=== PATIENT | female | born 1990 | race Caucasian/White ===

== ENCOUNTER 2018-09-23 14:45 | Observation (INO) | payer BC, MEDICAID ==
--- NOTE | 2018-09-23 14:56 | EDM.PDOC ---
ED HPI GENERAL MEDICAL PROBLEM - General Chief Complaint: Cardiovascular Problem Stated Complaint: Anxiety Time Seen by Provider: 09/23/18 14:56 Source of Information: Reports: Patient History Limitations: Reports: No Limitations - History of Present Illness INITIAL COMMENTS - FREE TEXT/NARRATIVE: Presents to emergency department this afternoon with what she claims a panic attack. 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 She has been borderline anemic in the past and has been experiencing 4 weeks of continuous vaginal bleeding minimal to moderate with no cessation. History of regular manses lifelong with roughly 3 months ago a missed period followed by this 1 month persistent vaginal bleed. She denied the risk of . Childhood asthma-type diagnosis and she had wheezing at times with no other medical problems acknowledged other than roughly 2 years ago endometriosis with transvaginal as well as abdominal pelvic ultrasound. J she acknowledges to me that she has been in bed for several days due to illness but denies claudication or leg cramps. Mild edema to the legs. Onset: Today Onset Date: 09/23/18 Duration: Hour(s):, Getting Worse Location: Reports: Head, Chest Quality: Reports: Ache, Burning Severity: Severe Improves with: Reports: None Worsens with: Reports: None Context: Reports: Activity Associated Symptoms: Reports: Weakness - Related Data Allergies Allergy/AdvReac Type Severity Reaction Status Date / Time No Known Drug Allergies Allergy Other Verified 09/23/18 15:06 Home Meds: Home Meds Ibuprofen 400 mg PO Q6HR PRN 09/23/18 [History] Past Medical History HEENT History: Reports: Other (See Below) (Foreign body in nasal passage at age 5 with infectious property) Cardiovascular History: Reports: None Respiratory History: Reports: Asthma (Childhood in nature with occasional wheeze but never O facial diagnosis) Gastrointestinal History: Reports: None Genitourinary History: Reports: None TORCH HEATER History: Reports: Dysfunctional Uterine Bleeding, Endometriosis LMP (Approximate): Menstruating (For the past 4 weeks) Musculoskeletal History: Reports: None Neurological History: Reports: None Psychiatric History: Reports: Anxiety Endocrine/Metabolic History: Reports: None Hematologic History: Reports: Anemia (Borderline for several years) Immunologic History: Reports: None Oncologic (Cancer) History: Reports: None Dermatologic History: Reports: None - Infectious Disease History Infectious Disease History: Reports: Chicken Pox, Other (See Below) (Fully immunized with typical childhood illnesses) - Past Surgical History HEENT Surgical History: Reports: Other (See Below) (Removal of sponge foreign body in the posterior nasal passage was infected) Social & Family History - Family History Family Medical History: Noncontributory HEENT: Reports: None Respiratory: Reports: None - Tobacco Use Smoking Status *Q: Never Smoker - Tobacco Core Measures Tobacco Use/Smoking Within Last 30 Days: No Smoking Frequency Within Last 30 Days: Reports: None Smokeless Tobacco Use in Last 30 Days: No Smokeless Tobacco Use History: None - Caffeine Use Caffeine Use: Reports: Coffee - Alcohol Use Alcohol Use History: No - Recreational Drug Use Recreational Drug Use: No Drug Use in Last 12 Months: No - Sexual History Sexual History: Reports: Vaginal [place] - Living Situation & Occupation Living situation: Reports: Single, Alone Occupation: Employed ED ROS GENERAL - Review of Systems Review Of Systems: See Below Constitutional: Reports: Weakness HEENT: Reports: No Symptoms Respiratory: Reports: Shortness of Breath Cardiovascular: Reports: Lightheadedness Endocrine: Reports: No Symptoms GI/Abdominal: Denies: Hematemesis, Hematochezia, Melena : Reports: Discharge, Irregular Menses Musculoskeletal: Reports: No Symptoms Skin: Reports: No Symptoms Neurological: Reports: No Symptoms Psychiatric: Reports: Anxiety Hematologic/Lymphatic: Reports: Anemia Immunologic: Reports: No Symptoms ED EXAM, GENERAL - Physical Exam Exam: See Below Exam Limited By: No Limitations General Appearance: Alert, WD/WN, No Apparent Distress Ears: Normal External Exam, Normal Canal, Hearing Grossly Normal, Normal TMs Nose: Normal Inspection, Normal Mucosa, No Blood Throat/Mouth: Normal Inspection, Normal Lips, Normal Teeth, Normal Oropharynx, Normal Voice, No Airway Compromise Head: Atraumatic, Normocephalic Neck: Normal Inspection, Supple, Non-Tender, Full Range of Motion Respiratory/Chest: No Respiratory Distress, Lungs Clear, Normal Breath Sounds, No Accessory Muscle Use, Chest Non-Tender, Other (Occasional squeak was noted audibly as well as auscultated in the base in 1 of 6 inspiration expiration cycles) Cardiovascular: Normal Peripheral Pulses, No Murmur GI/Abdominal: Normal Bowel Sounds, Soft, Non-Tender (Female) Exam: Deferred Rectal (Female) Exam: Deferred Extremities: Normal Inspection, Normal Range of Motion, Non-Tender, Pedal Edema (+2 bilateral). No: Susi's Sign (.) Neurological: Alert, Oriented, CN II-XII Intact, Normal Cognition, Normal Gait, Normal Reflexes, No Motor/Sensory Deficits Psychiatric: Anxious Skin Exam: Warm, Dry, Intact, No Rash, Pallor Lymphatic: No Adenopathy Course - Vital Signs Last Recorded V/S: Last Vital Signs Temp 35.5 C 09/23/18 14:50 Pulse 137 H 09/23/18 14:50 Resp 30 H 09/23/18 14:50 BP 130/70 09/23/18 14:50 Pulse Ox 100 09/23/18 14:50 - Orders/Labs/Meds Orders: Active Orders 24 hr Category Date Time Status Chest w Cont [CT] Stat Exams 09/23/18 16:01 Ordered BLOOD SMEARS TO PATHOLOGIST [REF] Stat Lab 09/23/18 16:03 Ordered IRON PNL (FE, TIBC, BRAIN, %SAT) [REF] Stat Lab 09/23/18 16:02 Ordered RETICULOCYTE COUNT [REF] Stat Lab 09/23/18 16:03 Ordered TYPE AND SCREEN [BBK] Stat Lab 09/23/18 16:04 Ordered Transfuse RBC [Transfuse Red Blood Cells] [COMM] Urgent Oth 09/23/18 16:05 Ordered Labs: Laboratory Tests 09/23/18 09/23/18 09/23/18 Range/Units 15:10 15:10 15:10 WBC 8.37 (5.00-10.00) 10^3/uL RBC 2.37 L (3.80-5.50) 10^6/uL Hgb 5.3 L* (12.0-16.0) g/dL Hct 18.4 L* (37.0-47.0) % MCV 77.6 L (82.0-92.0) fL MCH 22.4 L (27.0-31.0) pg MCHC 28.8 L (32.0-36.0) g/dL RDW 22.3 H (11.5-14.5) % Plt Count 316 (150-400) 10^3/uL MPV 12.0 H (7.4-10.4) fL Immature Gran % (Auto) 0.2 (0.0-5.0) % Neut % (Auto) 72.2 H (50.0-70.0) % Lymph % (Auto) 18.2 L (20.0-40.0) % [place] % (Auto) 8.1 H (2.0-8.0) % Eos % (Auto) 0.5 L (1.0-3.0) % Baso % (Auto) 0.8 (0.0-1.0) % Immature Gran # (Auto) 0.02 (0.00-0.50) 10^3/uL Neut # (Auto) 6.04 (2.50-7.00) 10^3/uL Lymph # (Auto) 1.52 (1.00-4.00) 10^3/uL [place] # (Auto) 0.68 (0.10-0.80) 10^3/uL Eos # (Auto) 0.04 L (0.10-0.30) 10^3/uL Baso # (Auto) 0.07 (0.00-0.10) 10^3/uL D-Dimer, Quantitative 507 H (<400) ng/mL Sodium 140 (136-145) mmol/L Potassium 3.2 L (3.3-5.3) mmol/L Chloride 104 (98-115) mmol/L Carbon Dioxide 16.2 L (21.0-32.0) mmol/L Anion Gap 23.0 H (5-15) mmol/L BUN 11 (6-25) mg/dL Creatinine 1.02 (0.51-1.17) mg/dL Est Cr Clr Drug Dosing 75.21 mL/min Estimated GFR (MDRD) > 60 mL/min Glucose 115 H (75 - 99) mg/dL Calcium 9.2 (8.7-10.3) mg/dL Total Bilirubin 0.3 (0.2-1.0) mg/dL AST 16 (15-37) U/L ALT 21 (12-78) U/L Alkaline Phosphatase 41 L (46-116) IU/L Total Protein 7.2 (6.4-8.2) g/dL Albumin 3.69 (3.00-4.80) g/dL HCG, Qual Negative (NEGATIVE) Departure - Departure Time of Disposition: 16:49 Disposition: Refer to Observation Condition: Good Clinical Impression: Anxiety, Anemia, Elevated d-dimer - Discharge Information *PRESCRIPTION DRUG MONITORING PROGRAM REVIEWED*: Not Applicable *COPY OF PRESCRIPTION DRUG MONITORING REPORT IN PATIENT JOSE ROBERTO: Not Applicable Referrals: Bettye Barros PA-C [Primary Care Provider] - Forms: ED Department Discharge ED Communication - ED Communication Date/Time Date: 09/23/18 Time Called: 15:50 - Discussed Case With (1) Discussed Case With (1): Admitting Provider Person/s Notified (1): Bettye Barros (Discussed stability despite anemia 5.3. Hesitant to transfuse if further studies were being performed. Discussion for admission further lab work including PE study due to elevated d-dimer and 2 unit transfusion) - Problem List & Annotations (1) Shortness of breath SNOMED Code(s): 650488372 Code(s): R06.02 - SHORTNESS OF BREATH Status: Acute Priority: High Current Visit: Yes (2) Anxiety SNOMED Code(s): 44154266 Code(s): F41.9 - ANXIETY DISORDER, UNSPECIFIED Status: Chronic Priority: Medium Current Visit: Yes (3) Anemia SNOMED Code(s): 051841125 Code(s): D64.9 - ANEMIA, UNSPECIFIED Status: Chronic Priority: High Current Visit: Yes Qualifiers: Anemia type: unspecified type Qualified Code(s): D64.9 - Anemia, unspecified (4) Elevated d-dimer SNOMED Code(s): 521787147 Code(s): R79.89 - OTHER SPECIFIED ABNORMAL FINDINGS OF BLOOD CHEMISTRY Status: Acute Priority: High Current Visit: Yes (5) Hypokalemia SNOMED Code(s): 08146088 Code(s): E87.6 - HYPOKALEMIA Status: Acute Priority: High Current Visit : Yes (6) Abnormal uterine and vaginal bleeding, unspecified SNOMED Code(s): 602327684, 331059726, 805277316 Code(s): N93.9 - ABNORMAL UTERINE AND VAGINAL BLEEDING, UNSPECIFIED Status : Acute Priority: High Current Visit: Yes Onset Date: ~08/17/18 - My Orders Last 24 Hours: My Active Orders 09/23/18 16:01 Chest w Cont [CT] Stat 09/23/18 16:02 IRON PNL (FE, TIBC, BRAIN, %SAT) [REF] Stat 09/23/18 16:03 BLOOD SMEARS TO PATHOLOGIST [REF] Stat RETICULOCYTE COUNT [REF] Stat 09/23/18 16:04 TYPE AND SCREEN [BBK] Stat 09/23/18 16:05 Transfuse RBC [Transfuse Red Blood Cells] [COMM] Urgent - Assessment/Plan Admission H&P: Please use this note as an admission H&P Last 24 Hours: My Active Orders 09/23/18 16:01 Chest w Cont [CT] Stat 09/23/18 16:02 IRON PNL (FE, TIBC, BRAIN, %SAT) [REF] Stat 09/23/18 16:03 BLOOD SMEARS TO PATHOLOGIST [REF] Stat RETICULOCYTE COUNT [REF] Stat 09/23/18 16:04 TYPE AND SCREEN [BBK] Stat 09/23/18 16:05 Transfuse RBC [Transfuse Red Blood Cells] [COMM] Urgent Plan: Will obtain PE protocol CT with contrast of the chest. Will be referred for observation status type and crossed with match of 2 units to be infused. Pelvic ultrasound with transvaginal will be obtained tomorrow
[2018-09-23 15:43] LABS: CHLORIDE,CL 104 mmol/L (98-115); SODIUM,NA 140 mmol/L (136-145)
[2018-09-23] MEDS ORDERED: Iopamidol 755 Mg/ML 75 ML Bottle IVPUSH ONE (16:21)
[2018-09-23] MEDS ORDERED: Sodium Chloride 0.9% 100 ML IV SCH (16:30)
--- NOTE | 2018-09-23 17:00 | CT ---
[id number] CT/CT Chest W IV EXAM: CT ANGIOGRAM CHEST. INDICATION: Positive d-dimer. COMPARISON: None. DISCUSSION: The pulmonary arteries are normal in caliber with no filling defects identified to suggest pulmonary emboli. Mildly dilated gas-filled esophagus to the level of the gastroesophageal junction. Differential considerations would include recent belching, air swallowing or distal esophageal stenosis. No mass is identified. An esophagram could provide further evaluation if there are symptoms related to swallowing. The lungs are clear. No pleural or pericardial effusion. Normal heart size. No mediastinal, hilar or axillary adenopathy. The upper abdomen and osseous structures are unremarkable. IMPRESSION: 1. Negative for pulmonary embolism. 2. Gas-filled mildly dilated esophagus, see discussion. Joel Bunch MD 09/23/18 6509 Thank you for allowing us to participate in the care of your patient.
[2018-09-23] MEDS ORDERED: Acetaminophen 325 MG Tab PO PRN (22:47)
--- NOTE | 2018-09-24 08:55 | PCM.DCSUM1 ---
Discharge Summary - Hospital Course Free Text/Narrative:: Damaris is being discharged from an observation stay overnight (09/23 - 09/24) due to anemia secondary to dysfunction uterine bleeding. She has a 4 weeks hx of mild to moderate vaginal bleeding daily. She states over the weekend she went through 4 "maxi size pads just overnight". She had no cramping. She had passage of clots but nothing large. She does not take blood thinners, she had not been using NSAID's. She has been borderline anemic in the past per her report. No recent labs have been drawn to know where she has been in the past year. 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 In the ER she was noted to be in a sinus tachycardia. Basic labs were obtained which showed a hemoglobin of 5.3, microcytic with an MCV of 77.6. Iron studies were obtained ( results pending), test was negative and she was admitted for blood transfusion. She received 2 units of PRBC's and her hemoglobin this morning was 7.8. Her tachycardia had resolved. She had a minimally elevated d-dimer of 507 and given the fact she had been spending a lot of time in bed the past 3 days due to not feeling well, a CT PE protocol was obtained, which was negative for PE. No LE symptoms. She is feeling much better this morning, no SOB. She underwent a pelvic ultrasound this morning, results are pending. She will be discharged home today. Recommend iron supplementation with ferrous sulfate, 1 tablet by mouth every other day. She states she is taking iron daily at home. Recommend follow-up with PCP within 1 week to get referral to [facility] for dysfunctional uterine bleeding and to repeat CBC. Pending tests at discharge: Iron studies Pelvic U/S report Discharge Diagnosis: Anemia secondary to acute blood loss. Dysfunctional uterine bleeding. Diagnosis: Stroke: No Modified Orange Scale: No Symptoms at All Modified Orange Scale Score: 0 - Discharge Data Discharge Date: 09/24/18 Discharge Disposition: Home, Self-Care 01 Condition: Good - Discharge Diagnosis/Problem(s) (1) Abnormal uterine and vaginal bleeding, unspecified SNOMED Code(s): 474606365, 409873501, 465476256 ICD Code: N93.9 - ABNORMAL UTERINE AND VAGINAL BLEEDING, UNSPECIFIED Status : Acute Priority: High Current Visit: Yes Onset Date: ~08/17/18 (2) Anemia SNOMED Code(s): 511040987 ICD Code: D64.9 - ANEMIA, UNSPECIFIED Status: Chronic Priority: High Current Visit: Yes Qualifiers: Anemia type: iron deficiency Iron deficiency anemia type: chronic blood loss Qualified Code(s): D50.0 - Iron deficiency anemia secondary to blood loss (chronic) - Patient Instructions Diet: Regular Diet as Tolerated Activity: As Tolerated - Discharge Plan *PRESCRIPTION DRUG MONITORING PROGRAM REVIEWED*: Not Applicable *COPY OF PRESCRIPTION DRUG MONITORING REPORT IN PATIENT JOSE ROBERTO: Not Applicable Home Medications: Home Meds Ibuprofen 400 mg PO Q6HR PRN 09/23/18 [History] Forms: ED Department Discharge Referrals: Bettye Barros PA-C [Primary Care Provider] - - Discharge Summary/Plan Comment DC Time >30 min.: No - General Info Date of Service: 09/24/18 Admission Dx/Problem (Free Text: Acute blood loss anemia. - Patient Data Vitals - Most Recent: Last Vital Signs Temp 98.6 F 09/24/18 06:14 Pulse 84 09/24/18 06:14 Resp 18 09/24/18 06:14 BP 98/61 09/24/18 06:14 Pulse Ox 99 09/24/18 06:14 Weight - Most Recent: 147 lb I&O - Last 24 hours: Intake & Output 09/23/18 09/24/18 09/24/18 22:59 06:59 14:59 Intake Total 350 325 Balance 350 325 Lab Results - Last 24 hrs: Laboratory Results - last 24 hr 09/23/18 09/23/18 09/23/18 Range/Units 15:10 15:10 15:10 WBC 8.37 (5.00-10.00) 10^3/uL RBC 2.37 L (3.80-5.50) 10^6/uL Hgb 5.3 L* (12.0-16.0) g/dL Hct 18.4 L* (37.0-47.0) % MCV 77.6 L (82.0-92.0) fL MCH 22.4 L (27.0-31.0) pg MCHC 28.8 L (32.0-36.0) g/dL RDW 22.3 H (11.5-14.5) % Plt Count 316 (150-400) 10^3/uL MPV 12.0 H (7.4-10.4) fL Immature Gran % (Auto) 0.2 (0.0-5.0) % Neut % (Auto) 72.2 H (50.0-70.0) % Lymph % (Auto) 18.2 L (20.0-40.0) % [place] % (Auto) 8.1 H (2.0-8.0) % Eos % (Auto) 0.5 L (1.0-3.0) % Baso % (Auto) 0.8 (0.0-1.0) % Immature Gran # (Auto) 0.02 (0.00-0.50) 10^3/uL Neut # (Auto) 6.04 (2.50-7.00) 10^3/uL Lymph # (Auto) 1.52 (1.00-4.00) 10^3/uL [place] # (Auto) 0.68 (0.10-0.80) 10^3/uL Eos # (Auto) 0.04 L (0.10-0.30) 10^3/uL Baso # (Auto) 0.07 (0.00-0.10) 10^3/uL D-Dimer, Quantitative 507 H (<400) ng/mL Sodium 140 (136-145) mmol/L Potassium 3.2 L (3.3-5.3) mmol/L Chloride 104 (98-115) mmol/L Carbon Dioxide 16.2 L (21.0-32.0) mmol/L Anion Gap 23.0 H (5-15) mmol/L BUN 11 (6-25) mg/dL Creatinine 1.02 (0.51-1.17) mg/dL Est Cr Clr Drug Dosing 75.21 mL/min Estimated GFR (MDRD) > 60 mL/min Glucose 115 H (75 - 99) mg/dL Calcium 9.2 (8.7-10.3) mg/dL Total Bilirubin 0.3 (0.2-1.0) mg/dL AST 16 (15-37) U/L ALT 21 (12-78) U/L Alkaline Phosphatase 41 L (46-116) IU/L Total Protein 7.2 (6.4-8.2) g/dL Albumin 3.69 (3.00-4.80) g/dL HCG, Qual Negative (NEGATIVE) Blood Type Gel Antibody Screen Crossmatch 09/23/18 09/24/18 Range/Units 15:50 07:10 WBC 6.30 (5.00-10.00) 10^3/uL RBC 3.14 L (3.80-5.50) 10^6/uL Hgb 7.8 L D (12.0-16.0) g/dL Hct 25.3 L (37.0-47.0) % MCV 80.6 L D (82.0-92.0) fL MCH 24.8 L (27.0-31.0) pg MCHC 30.8 L (32.0-36.0) g/dL RDW 20.0 H (11.5-14.5) % Plt Count 270 (150-400) 10^3/uL MPV 11.8 H (7.4-10.4) fL Immature Gran % (Auto) 0.2 (0.0-5.0) % Neut % (Auto) 65.5 (50.0-70.0) % Lymph % (Auto) 22.9 (20.0-40.0) % [place] % (Auto) 9.4 H (2.0-8.0) % Eos % (Auto) 1.0 (1.0-3.0) % Baso % (Auto) 1.0 (0.0-1.0) % Immature Gran # (Auto) 0.01 (0.00-0.50) 10^3/uL Neut # (Auto) 4.14 (2.50-7.00) 10^3/uL Lymph # (Auto) 1.44 (1.00-4.00) 10^3/uL [place] # (Auto) 0.59 (0.10-0.80) 10^3/uL Eos # (Auto) 0.06 L (0.10-0.30) 10^3/uL Baso # (Auto) 0.06 (0.00-0.10) 10^3/uL D-Dimer, Quantitative (<400) ng/mL Sodium (136-145) mmol/L Potassium (3.3-5.3) mmol/L Chloride (98-115) mmol/L Carbon Dioxide (21.0-32.0) mmol/L Anion Gap (5-15) mmol/L BUN (6-25) mg/dL Creatinine (0.51-1.17) mg/dL Est Cr Clr Drug Dosing mL/min Estimated GFR (MDRD) mL/min Glucose (75 - 99) mg/dL Calcium (8.7-10.3) mg/dL Total Bilirubin (0.2-1.0) mg/dL AST (15-37) U/L ALT (12-78) U/L Alkaline Phosphatase (46-116) IU/L Total Protein (6.4-8.2) g/dL Albumin (3.00-4.80) g/dL HCG, Qual (NEGATIVE) Blood Type A POSITIVE Gel Antibody Screen Negative Crossmatch See Detail Med Orders - Current: Current Medications Acetaminophen (Tylenol) 650 mg PO Q4H PRN PRN Reason: Headache Last Admin: 09/23/18 23:14 Dose: 650 mg Sodium Chloride (Normal Saline) 100 mls @ 200 mls/hr IV ASDIRECTED YOAV Last Admin: 09/23/18 16:37 Dose: 200 mls/hr Discontinued Medications Iopamidol (Isovue-370 (76%)) 75 ml IVPUSH ONETIME ONE Stop: 09/23/18 16:22 Last Admin: 09/23/18 16:37 Dose: 75 ml - Exam General: Reports: Alert, Oriented, Cooperative, No Acute Distress Lungs: Reports: Clear to Auscultation, Normal Respiratory Effort Cardiovascular: Reports: Regular Rate, Regular Rhythm, No Murmurs Psy/Mental Status: Reports: Alert, Normal Affect, Normal Mood
--- NOTE | 2018-09-24 10:25 | US ---
[id number] US/US Pelvic Transabdominal Only Exam: US Pelvic Transabdominal Only Indication:VAGINAL BLEEDING. Comparison: No prior imaging for comparison. Discussion: Trace amount of free fluid the pelvis, within normal physiologic limits for reproductive age female. Atrium is thickened, measuring up to 20 mm in diameter without focal lesion. No abnormal fluid in the endometrial canal. Uterus otherwise normal in appearance. Ovaries are normal in size with normal color flow and spectral waveforms. Impression: Mildly thickened endometrium, measuring up to 20 mm in diameter without a focal lesion or abnormal endometrial canal fluid. Normal adnexa. Olivier Fischer MD 09/24/18 1023 Thank you for allowing us to participate in the care of your patient.
== END 2018-09-24 09:53 | disposition home or self-care (01) ==
LOC: KA.ED 14:45 → KA.MS 16:40
PROVIDERS: ADMIT Internal Medicine
DX: D62 Acute posthemorrhagic anemia (principal); N93.8 Other specified abnormal uterine and vaginal bleeding; E87.6 Hypokalemia; J45.909 Unspecified asthma, uncomplicated; F41.9 Anxiety disorder, unspecified
CPT/HCPCS: 36415; 36430; 71260; 76856; 80053; 82728; 83540; 83550; 84703; 85008; 85025; 85379; 86850; 86900; 86901; 86920; 86922; 99220; 99285-25; A9270-GY; G0378; J7050; P9016; Q9967